=== PATIENT | male | born 1980 | race Caucasian/White ===

== ENCOUNTER 2024-10-17 08:14 | Emergency (ER) | payer OTHER ==
[~2024-10-17] VITALS: Ht 182.9 cm; Wt 105.3 kg
[2024-10-17] MEDS ORDERED: CLOPIDOGREL75 MG PO (08:26)
[2024-10-17] MEDS ORDERED: GLIPIZIDE ER5 MG PO (08:26)
[2024-10-17] MEDS ORDERED: DRIZALMA SPRINK60 MG PO (08:27)
[2024-10-17] MEDS ORDERED: TRULICITY0.75 MG/0. SUB-Q (08:27)
[2024-10-17] MEDS ORDERED: LIPITOR20 MG PO (08:27)
[2024-10-17] MEDS ORDERED: ASPIRIN81 MG PO (08:27)
[2024-10-17] MEDS ORDERED: METOPROLOL SUCC25 MG PO (08:28)
[2024-10-17] MEDS ORDERED: NITROSTAT0.4 MG SL (08:28)
--- OUTSIDE RECORDS SUMMARY | 2024-10-17 08:47 | XMS ---
PreManage Notification: MARIYA BANSAL Security Manager [employer] No recent Security Events currently on file CRITERIA MET - [place] [address] Facilities in 90 Days CARE PROVIDERS -, [facility] Dentist: Social Insurance Administrator Current Kaylee PHONE: [phone] [id number] [facility] Current PHONE: [phone] SOREN LOPEZ Family [facility] Current PHONE: Unknown PANCHO BOLAÑOS [facility] Current PHONE: Unknown MARK ANTHONY FIORE Nurse Practitioner: Current PHONE: [phone] Ayah has no Care Guidelines for this patient. [facility] VISIT COUNT (12 MO.) 1 [facility] 1 COURTNEY Núñez 1 Nikolas Serrano 1 [facility] T[facility] NOTE: Visits indicate total known visits. ED/UCC VISIT TRACKING (12 MO.) 10/17/2024 08:15 [facility] [place] TYPE: Emergency COMPLAINT: - RT W[facility]ST INJURY [facility] DIAGNOSES: - Chest pain, unspecified - Hyperglycemia, unspecified - Chest Pain 08/20/2024 12:46 Nikolas LLOYD TYPE: Emergency COMPLAINT: - CP; DIFF BREATHING DIAGNOSES: - CP; DIFF BREATHING 06/04/2024 15:33 COURTNEY [facility]LOY[facility] TYPE: Emergency COMPLAINT: - POSS DKA DIAGNOSES: - Type 2 diabetes mellitus with hyperglycemia - Type 2 diabetes mellitus with hyperglycemia INPATIENT VISIT TRACKING (12 MO.) 08/20/2024 12:46 Nikolas LLOYD TYPE: Medical Surgical COMPLAINT: - CP; DIFF BREATHING DIAGNOSES: - CP; DIFF BREATHING [email or web address]
[2024-10-17 09:24] VITALS: BP 117/79
== END 2024-10-17 09:24 | disposition home or self-care (01) ==
LOC: ED 08:14
DX: S60.211A Contusion of right wrist, initial encounter (principal); E11.9 Type 2 diabetes mellitus without complications; I25.2 Old myocardial infarction; Z79.01 Long term (current) use of anticoagulants; Z79.84 Long term (current) use of oral hypoglycemic drugs; Z79.82 Long term (current) use of aspirin; Z79.85 Long-term (current) use of injectable non-insulin antidiabetic drugs; Z79.899 Other long term (current) drug therapy; W20.8XXA Other cause of strike by thrown, projected or falling object, initial encounter
CPT/HCPCS: 73110; 99283